=== PATIENT | female | born 1995 | race Caucasian/White ===

== ENCOUNTER 2017-09-14 06:06 | Day surgery (SDC) | payer OTHER ==
[~2017-09-14 06:06] MED LIST: Buffered Lidocaine 0.9% SYRIN* 5 ML/SYR SYRINGE INTRADERM ONE; Dexamethasone TAB* 4 MG PO ONE; DiMENhydriNATE IV* 50 MG/ML VIAL IV PUSH PRN; Famotidine IV* 10 MG/ML 2 ML (20 mg) IV ONE; Morphine INJ* 2 MG/ML 1 ML CARPUJECT IV PRN; Naloxone* 0.4 MG/ML 1 ML VIAL IV PRN; Ondansetron INJ* 2 MG/ML VIAL ONE; PROCHLORPERAZINE INJ 5 MG/ML 2 ML VIAL IV PRN; Scopolamine 1.5 mg* PATCH TRANSDERM PRN; fentaNYL* 50 MCG/ML 2 ML VIAL (100 MCG VIAL) IV PRN; oxyCODONE/Acetamin 5/325 MG* TAB PO PRN
[2017-09-14] MEDS ORDERED: Ondansetron ODT TAB* 4 MG ONE (06:11)
[2017-09-14] MEDS ORDERED: Dexamethasone IV* 4 MG/ML 1 ML (4 MG) ONE (06:12)
[2017-09-14] MEDS ORDERED: ceFAZolin 2 GM PREMIX (*) 2 GM/50 ML BAG IVPB ONE (06:12)
[2017-09-14] MEDS ORDERED: Buffered Lidocaine 0.9% SYRIN* 5 ML/SYR SYRINGE ONE (06:12)
[2017-09-14] MEDS ORDERED: Famotidine TAB* 20 MG ONE (06:13)
[2017-09-14] MEDS ORDERED: Famotidine IV* 10 MG/ML 2 ML (20 mg) ONE (06:40)
[2017-09-14] MEDS ORDERED: Dexamethasone TAB* 4 MG ONE (06:56)
[2017-09-14] MEDS ORDERED: Lidocaine 1% MPF wEPI 200,000* 30 ML SDV ONE (07:09)
[2017-09-14] MEDS ORDERED: Bupivacaine 0.5% SDV PF* 30ML VIAL ONE (07:09)
[2017-09-14] MEDS ORDERED: fentaNYL* 50 MCG/ML 2 ML VIAL (100 MCG VIAL) ONE (07:22)
[2017-09-14] MEDS ORDERED: Midazolam* 1 MG/ML 5 ML VIAL (5 MG) ONE (07:22)
[2017-09-14] MEDS ORDERED: Scopolamine 1.5 mg* PATCH ONE (07:44)
[2017-09-14] MEDS ORDERED: PROCHLORPERAZINE INJ 5 MG/ML 2 ML VIAL ONE (07:44)
[2017-09-14] MEDS ORDERED: Propofol* 10 MG/ML 20 ML BTL IV PUSH ONE (07:44)
[2017-09-14] MEDS ORDERED: Ketorolac INJ* 30 MG/ML 1 ML VIAL ONE (07:44)
[2017-09-14] MEDS ORDERED: Lidocaine 2% PF * 5 ML VIAL ONE (07:45)
[2017-09-14] MEDS ORDERED: Morphine INJ* 10 MG/ML 1 ML CARPUJECT ONE (07:46)
[2017-09-14] MEDS ORDERED: DiMENhydriNATE IV* 50 MG/ML VIAL ONE (12:18)
[2017-09-14 12:41] VITALS: BP 122/68
--- NOTE | 2017-09-14 17:30 | OP ---
OPERATIVE REPORT: DATE OF OPERATION: 09/14/17 DATE OF : 89 ATTENDING SURGEON: Manuel Martin MD. POND SAWYER: PALOMO Razo. Customs And Immigration Officer was needed for the entirety of the case to help with positioning, retraction, and utilized throughout all portions of the case. ANESTHESIOLOGIST: Dr. Preciado. ANESTHESIA: General. PRE-OP DIAGNOSIS: Left knee anterior cruciate ligament tear. POST-OP DIAGNOSIS: Left grade III anterior cruciate ligament tear with lateral meniscus fraying and a healed lateral meniscal tear and a small area of chondrosis in the medial femoral condyle. OPERATIVE PROCEDURE: Left knee arthroscopy with ACL reconstruction using hamstring autograft, partial lateral menisectomy IMPLANTS USED: [employer] EndoButton and a size 8 x 20 mm biocomposite screw. COMPLICATIONS: None. ESTIMATED BLOOD LOSS: Minimal. TOURNIQUET TIME: About 21 minutes at 250 mmHg INDICATION: Marina Peterson is a 22-year-old female who sustained an ACL injury on 07/21 while she was skiing. She did some preoperative physical therapy. She is a [place] al[place] and her family is local. She states that she was interested in treating this surgically here. Risks and benefits of surgery were discussed at length including but not limited to bleeding, infection, damage to nerves, vessels, surrounding structures, wound nonhealing, persistent pain, need for further surgery, scarring, stiffness, incomplete relief of symptoms, and risks of anesthesia and retear. DESCRIPTION OF PROCEDURE: The patient was greeted in the preoperative area by the attending surgeon. Correct extremity was marked and consent confirmed. The patient was brought back to the operating suite, where she was placed in the supine position on the operating table. She then underwent general anesthesia, LMA intubation, after which she was appropriately positioned in the bed. Then lateral post was positioned. A nonsterile tourniquet was placed on proximal thigh. A vann bag to allow to the knee to rest at 90 degrees was placed. The left leg was then prepped and draped in the usual sterile fashion beginning with chlorhexidine soap, scrub, and alcohol wipe, and a final prep with ChloraPrep. After appropriate surgical pause indicating site, side, procedure, and administration of antibiotics, the knee was intraarticularly injected with 1% lidocaine with epi. The limb was exsanguinated and the tourniquet was inflated to 250 mmHg. A 15 blade was used to make an incision splitting the distance between the posterior medial aspect of the tibia in the tibial tubercle. A longitudinal incision in the soft tissues was carefully dissected to expose the hamstrings. An L-shaped release of sartorius fascia was then made and then 2 hamstring tendons were identified. The gracilis semitendinosus were then delineated and tagged with #5 Ethibond suture in a whip stitch fashion. The adhesions were then released separately. The gracilis was very small in diameter and the semitendinosus was moderate. The hamstrings were then harvested for a full length with 24 to 25 cm. These were then prepared in the back table. Both ends were whip stitched and then both tendons were then tripled which amounted to a size 8 mm graft. After the grafts were tripled they were then sewed closed with a #2 Vicryl suture. These were then left in tension on the back table to remove any creep in the graft. While this is being done by the surgeon, the tourniquet was deflated. Attention was directed to the knee arthroscopy portion. An anterior lateral portal were made sharply with 11 blade. Scope was introduced into the joint. Joint was examined. The scope was placed in the suprapatellar pouch. There were grade 0 changes in the patellofemoral joint. The medial and lateral gutters were intact without any loose debris. There was synovitis that was removed after the anterior medial portal was made using an # 18 gauge for localization. The shaver was used to remove the synovitis as well as the ligamentum. The ACL had a full thickness grade 3 rupture. The stump was apparent anteriorly. The stump as well as the remaining remnant were debrided back using a shaver. The lateral wall was then prepared with electrocautery device and the shaver to expose the wall. At this point, the scope was introduced in the medial compartment. The medial femoral condyle had about a dime sized area more medially based with a grade 2 changes. There was no full thickness lesion. The knee was placed in figure of 4 position. The lateral plateau had grade 1 changes with some softening. Lateral meniscus had evidence of tearing that had already healed as well as mild peripheral fraying which was debrided back using the shaver. The lateral femoral condyle had grade 0 changes. At this point, the femoral tunnel was drilled first using a [employer] guidewire. Once this was appropriately positioned, it was drilled to a depth of about 22 mm. The EndoButton drill guide was then drilled the full length. This was then measured and the appropriate EndoButton was chosen. The tip guide was then placed at around 52 degrees and drilled further the tibial tunnel. This was then placed in the center of the tibial footprint and drilled with a size 8 mm reamer. The tunnel was then carefully reamed to remove the soft tissues. Care was placed to prevent fluid egress. The #2 Ethibond suture was then passed through Beath pin through the femoral tunnel and through the tibial tunnel for graft placement. The graft was prepared in the back table and attached to the EndoButton. Then a 20- mm of the tendon was marked to determine the tunnel depth. At this point , the graft was brought to the operating table and then passed under arthroscopic and direct visualization. The button did deploy and came through the IT band. Therefore, a lateral incision was then made to try to get the button down to the actual bone. This is confirmed both directly as well as through an x-ray to confirm that the button was appropriately seated. The graft was then cycled approximately 20 times with tension on the tibial sutures. The graft was visualized and found to be in good position. At this point, the scope was removed and with the knee placed in gentle flexion and tension on the tibial sutures. The graft was secured with an 8 x 20 mm biocomposite screw. The scope was brought back to the joint, final images were obtained and the knee was placed in full extension and found not impinge anteriorly. Lavell was assessed and found to be stable. The knee was taken through range of motion and found to have full range of motion. The wounds were copiously irrigated with sterile saline. The lateral wound was closed, the IT band was closed with 0 Vicryl. The skin closed in layers with 2-0 Vicryl and 3- 0 Monocryl. The portals were closed with 3-0 nylon. The anteromedial wound was closed in layers, first the sartorius fascia was closed and then the skin closed in layers with 2-0 Vicryl and 3-0 Monocryl. Sterile dressings were applied. The wounds were injected with 0.25% Marcaine plain as well as the knee intraarticularly. A Cryo/Cuff as well as a hinged knee brace locked in extension was placed. She was awoken from anesthesia, transferred to the PACU in stable condition. POSTOPERATIVE PLAN: She will be weightbearing as tolerated. She will be discharged with pain medications and antibiotics. DVT prophylaxis was considered but deferred due to no previous personal or family history. I will see the patient back next week. [id number]/CPS #: [id number]
[2017-09-17] MEDS ORDERED: Scopolamine PATCH Remove* 1 NOTE MISC PATCH OFF ONE (05:45)
== END 2017-09-14 12:53 | disposition home or self-care (01) ==
LOC: OR 06:06
PROVIDERS: ATTEND Orthopaedic Surgery
DX: S83.512A Sprain of anterior cruciate ligament of left knee, initial encounter (principal); S83.282A Other tear of lateral meniscus, current injury, left knee, initial encounter; V00.328A Other snow-ski accident, initial encounter; Y93.23 Activity, snow (alpine) (downhill) skiing, snowboarding, sledding, tobogganing and snow tubing; Y92.39 Other specified sports and athletic area as the place of occurrence of the external cause
CPT/HCPCS: 76000; A9270-GY; C1713; C1776; J0690; J0780; J1100; J1240; J1885; J2001; J2250; J2270; J2704; J3010; J8540